=== PATIENT | male | born 1950 | race Caucasian/White ===

== ENCOUNTER 2021-08-01 10:20 | Outpatient (CLI) | payer MEDICARE, BC | END 2021-08-01 10:21 | disposition home or self-care (01) | LOC: CSHULT 10:20 | PROVIDERS: ATTEND Urology | DX: N31.2 Flaccid neuropathic bladder, not elsewhere classified (principal); N35.911 Unspecified urethral stricture, male, meatal; N40.1 Benign prostatic hyperplasia with lower urinary tract symptoms; R33.8 Other retention of urine; N21.0 Calculus in bladder | CPT/HCPCS: 74018; 76770 ==

== ENCOUNTER 2022-07-01 13:13 | Outpatient (CLI) | payer MEDICARE, BC | END 2022-07-01 13:14 | disposition home or self-care (01) | LOC: CSHCT 13:13 | PROVIDERS: ATTEND Urology | DX: R33.9 Retention of urine, unspecified (principal); N21.0 Calculus in bladder; N50.89 Other specified disorders of the male genital organs | CPT/HCPCS: 74176 ==

== ENCOUNTER 2023-06-24 09:36 | Outpatient (CLI) | payer MEDICARE, BC | END 2023-06-24 09:37 | disposition home or self-care (01) | LOC: CSHCT 09:36 | PROVIDERS: ATTEND Urology | DX: R33.9 Retention of urine, unspecified (principal); N21.0 Calculus in bladder; N31.2 Flaccid neuropathic bladder, not elsewhere classified; N35.911 Unspecified urethral stricture, male, meatal; Z12.5 Encounter for screening for malignant neoplasm of prostate; N43.3 Hydrocele, unspecified; Z96.0 Presence of urogenital implants; N32.9 Bladder disorder, unspecified | CPT/HCPCS: 74176 ==